=== PATIENT | male | born 1995 ===

== ENCOUNTER 2017-02-13 16:40 | Emergency (ER) | payer SELFPAY ==
[2017-02-13 16:47] VITALS: BP 107/63; PULSE 82; RESP 20; TEMP 99.2; O2SAT 98
--- NOTE | 2017-02-13 17:04 | C.PDOC ---
History Of Present Illness 21 year old male presents to the ED status post right facial injury just prior to arrival with complaints of injury to forehead, abrasion to nose, and swelling. Patient states while sleeping a light fixture fell onto him. He notes inital feelings of dizziness and denies other associated symptoms or injuries. SP R FACIAL INJURY [employer]. PS LIGHT FIXTURE FELL ONTO HIM WHILE SLEEPING. CO INJURY FOREHEAD, ABRASION NOSE AND SWELLING. +INITIAL DIZZY. NO OTHER ASSOC SX OR INJURY EXAM NONTOXIC HEENT +CONTUSION MID FOREHEAD W LOCAL TEND NO CREPITUS OR DEFORM; +MILD SWELL LAT L NOSE NO DEFORM W LOCAL TEND. EOMI WO DIFF; NO PERIORB TRAUMA. SKIN +1 MM ABRASION R UPPER LAT NOSE NO ACTIVE BLEED. NEURO INTACT Time Seen by Provider: 02/13/17 17:00 Chief Complaint (Nursing): Medical Clearance History Per: Patient History/Exam Limitations: no limitations Injury Occurred (Timing): Just Before Arrival Onset/Duration Of Symptoms: Hrs Patient States: Struck With Object (lighting fixture) Loss Of Consciousness: No Recent travel outside of the [place]: No Past Medical History Reviewed: Historical Data, Nursing Documentation, Vital Signs Vital Signs: Last Vital Signs Temp 99.2 F 02/13/17 16:46 Pulse 82 02/13/17 16:46 Resp 20 02/13/17 16:46 BP 107/63 02/13/17 16:46 Pulse Ox 98 02/13/17 18:26 Surgical History: Appendectomy Family History: States: Unknown Family Hx - Social History Hx Alcohol Use: No Hx Substance Use: Yes - Immunization History Hx Tetanus Toxoid Vaccination: Yes Hx Influenza Vaccination: No Hx Pneumococcal Vaccination: No Review Of Systems Constitutional: Negative for: Fever ENT: Positive for: Other (right facial injury with injury to forehead and abrasion to nose with swelling ) Cardiovascular: Negative for: Chest Pain Respiratory: Negative for: Shortness of Breath Gastrointestinal: Negative for: Nausea, Vomiting Neurological: Positive for: Dizziness (has resolved on arrival ). Negative for : Weakness, Numbness, Headache Physical Exam - Physical Exam Appears: Non-toxic, No Acute Distress Skin: Warm, Dry, Other (1cm abrasion to right upper lateral nose) Head: Tenderness (contusion to mid-forehead with local tenderness. ), Other (no crepitus or deformity. ) Eye(s): bilateral: Normal Inspection, PERRL, EOMI (without difficulty ), Other ( no periorbital trauma ) Nose: No Epistaxis (no active bleeding ), No Deformity, Tenderness (local tenderness to left lateral nose ), Other (mild swelling at lateral left nose ) Oral Mucosa: Moist Tongue: Normal Appearing, No Swelling Lips: Normal Appearing, No Swelling ED Course And Treatment O2 Sat by Pulse Oximetry: 98 (room air ) Pulse Ox Interpretation: Normal - Other Rad FACIAL XRAY X-Ray: Interpreted by Me (NEG) Disposition Counseled Patient/Family Regarding: Studies Performed, Diagnosis, Need For Followup - Disposition Referrals: YOUR,PMD [Other] Disposition: HOME/ ROUTINE Disposition Time: 17:27 Condition: IMPROVED Additional Instructions: TAKE TYLENOL AND/OR MOTRIN DIRECTED FOR PAIN. ICE TO AFFECTED AREA. Instructions: Post Concussion Syndrome (ED), Facial Contusion (ED) Forms: [facility] (Rom[facility]), Work Excuse - Clinical Impression Clinical Impression: Facial contusion - Scribe Statement The provider has reviewed the documentation as recorded by the Scribe Cathi Mcmullen All medical record entries made by the Scribe were at my direction and personally dictated by me. I have reviewed the chart and agree that the record accurately reflects my personal performance of the history, physical exam, medical decision making, and the department course for this patient. I have also personally directed, reviewed, and agree with the discharge instructions and disposition.
--- NOTE | 2017-02-14 08:03 | RAD ---
PROCEDURE: HISTORY: TRAUMA COMPARISON: None TECHNIQUE: Four views FINDINGS: Normal bone mineralization. No fracture or dislocation. Orbital rims intact. No antral air-fluid levels noted IMPRESSION: No fracture. Negative
== END 2017-02-13 18:17 | disposition home or self-care (01) ==
LOC: C.ER 16:40
DX: S00.83XA Contusion of other part of head, initial encounter (principal); W22.8XXA Striking against or struck by other objects, initial encounter; Y93.84 Activity, sleeping; Y92.003 Bedroom of unspecified non-institutional (private) residence as the place of occurrence of the external cause